=== PATIENT | female | born 1960 | race Caucasian/White ===

== ENCOUNTER → 2017-06-30 | Outpatient (CLI) | payer BC | END | disposition home or self-care (01) | LOC: GMAH 12:12 | PROVIDERS: ATTEND Family Medicine | DX: N30.00 Acute cystitis without hematuria (principal) ==

== ENCOUNTER → 2017-08-02 | Outpatient (CLI) | payer BC ==
--- NOTE | 2017-08-02 16:58 | CT ---
PROCEDURE: Abdoment/Pelvis w/o Contrast HISTORY: Abdominal pain. Evaluation for kidney stones Indication: Same as above Comparison: None Technique: CT of the abdomen and pelvis was done without intravenous contrast. Images were obtained from the lung base to the level of the pubic symphysis in axial plane, followed by orthogonal sagittal and coronal reconstruction. Oral contrast was not given for the study. This exam was performed according to our departmental dose-optimization program, which includes automated exposure control, adjustment of the mA and/or KV according to the patient's size and/or use of iterative reconstruction technique. FINDINGS: Images through the lung bases do not show any focal infiltrates or pleural effusions. The liver, gallbladder, pancreas, spleen and the bilateral adrenal glands appear unremarkable, given the limitation of lack of intravenous contrast. The bilateral kidneys do not show any evidence of hydronephrosis or nephrolithiasis. The bilateral ureters and the bilateral periureteral soft tissues and fat planes are unremarkable. The urinary bladder is unremarkable, without any evidence of wall thickening, calculi or filling defects. The small bowel appears unremarkable, without any evidence of small bowel obstruction or bowel wall thickening. There is no CT evidence of pericecal inflammatory change or ileocecal mesenteric adenitis. The ileocecal junction appears unremarkable. The appendix is not visualized There is no CT evidence of acute colonic diverticulitis or colitis or large bowel obstruction. There is no pathological lymphadenopathy in the retroperitoneum or in the pelvic region. There is no evidence of free fluid or free air in the abdomen or the pelvic region. There is no clinically significant abdominal aortic aneurysm. There is no clinically significant inguinal or ventral hernia. Uterus appears to be surgically absent The visualized lumbar spine is unremarkable. The paravertebral soft tissues are unremarkable. The remainder of the pelvic structures are unremarkable. IMPRESSION: There are no acute findings on the current study. There is no CT evidence of urinary tract calculi or urinary tract obstruction Electronically signed by: Humble Mcneal MD 08/02/2017 4:57 PM [employer] Workstation: [employer]
== END | disposition home or self-care (01) ==
LOC: CT 08:12
PROVIDERS: ATTEND Family Medicine
DX: N20.0 Calculus of kidney (principal); R10.84 Generalized abdominal pain; R31.21 Asymptomatic microscopic hematuria

== ENCOUNTER 2018-04-08 19:56 | Emergency (ER) | payer BC ==
--- NOTE | 2018-04-08 20:44 | ED.PDOC ---
History of Present Illness - General Chief Complaint: Neuro Symptoms/Deficits Stated Complaint: dizziness Time Seen by Provider: 04/08/18 20:30 Source: patient Exam Limitations: no limitations - History of Present Illness Initial Comments: Annette Barnes 57 y/o female stated that after cleansing her bathroom at about 11 am today had been feeling dizzy felt like she was spinning around which had been constant since it started .No blurry vision,no dysarthria,no muscle weakness.[place] nauseated but did not throw up. Timing/Duration: 4-6 hours Severity: moderate Improving Factors: nothing Worsening Factors: movement Associated Symptoms: denies symptoms Allergies/Adverse Reactions: Allergies NO KNOWN ALLERGY Allergy (Unverified 12/22/13 20:51) Review of Systems - Review of Systems Constitutional: States: no symptoms reported EENTM: States: no symptoms reported Respiratory: States: no symptoms reported Cardiology: States: no symptoms reported Gastrointestinal/Abdominal: States: no symptoms reported Genitourinary: States: no symptoms reported Musculoskeletal: States: no symptoms reported Skin: States: no symptoms reported Neurological: States: see HPI, other - dizziness All other Systems: Reviewed and Negative, No Change from Baseline Past Medical History (General) - Patient Medical History 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 Non Contributory this Encounter: Non Contributory for this Encounter Physical Exam - Physical Exam General Appearance: Alert, Comfortable, No apparent distress Eye Exam: bilateral normal Ears, Nose, Throat: hearing grossly normal, normal ENT inspection Neck: non-tender, full range of motion, supple Respiratory: chest non-tender, lungs clear, normal breath sounds, no respiratory distress Cardiovascular/Chest: normal peripheral pulses, regular rate, rhythm, no murmur Peripheral Pulses: radial,right: 2+, radial,left: 2+ Gastrointestinal/Abdominal: normal bowel sounds, non tender, soft Back Exam: normal inspection, no CVA tenderness, no vertebral tenderness Extremity: non-tender, normal inspection, no pedal edema, no calf tenderness Neurologic: no motor/sensory deficits, alert, normal mood/affect, oriented x 3, other - negative [place] Skin Exam: normal color, warm/dry Lymphatic: no adenopathy Progress - Progress Progress: 04/08/18 20:47 Vital Signs - 8 hr 04/08/18 20:05 Temperature 97.0 F L Pulse Rate [ 58 L Right] Respiratory 16 Rate Blood Pressure 146/82 [Left Arm] O2 Sat by Pulse 97 Oximetry BP-sittin/82;standin/90 04/08/18 22:16 She stated no longer feeling dizzy after given decadron,phenergan,and alprazolam 04/08/18 22:22 - Results/Orders Results/Orders: Vital Signs - 8 hr 04/08/18 04/08/18 04/08/18 20:05 21:00 22:06 Temperature 97.0 F L Pulse Rate [ 58 L 67 62 Right] Respiratory 16 16 16 Rate Blood Pressure 146/82 146/83 127/77 [Left Arm] O2 Sat by Pulse 97 98 Oximetry 04/08/18 21:00 EKG STAT Laboratory Results - last 24 hr 04/08/18 04/08/18 20:49 21:16 WBC 7.9 RBC 4.52 Hgb 13.3 Hct 39.1 MCV 86.4 MCH 29.4 MCHC 34.1 RDW 13.2 Plt Count 319 MPV 7.8 Absolute Neuts (auto) 5.20 Absolute Lymphs (auto) 1.80 Absolute Monos (auto) 0.60 Absolute Eos (auto) 0.10 Absolute Basos (auto) 0.10 Neutrophils % 66.2 Lymphocytes % 23.5 Monocytes % 7.5 Eosinophils % 1.8 Basophils % 1.0 PT 9.9 INR 0.99 PTT (SP) 26.8 Sodium 140 Potassium 3.8 Chloride 108 Carbon Dioxide 26 Anion Gap 9.8 L BUN 9 Creatinine 0.60 BUN/Creatinine Ratio 15.0 Random Glucose 113 H Serum Osmolality 280.8 Calcium 9.3 Magnesium 2.2 Total Bilirubin 0.6 Direct Bilirubin 0.3 H Indirect Bilirubin 0.3 AST 33 ALT 16 Alkaline Phosphatase 81 Creatine Kinase 139 CK-MB (CK-2) 2.2 CK-MB (CK-2) % Not Reportable Troponin I < 0.02 Serum Total Protein 7.2 Albumin 3.9 Urine Color Yellow Urine Appearance Sl cloudy Urine pH 7.5 Ur Specific [place] 1.020 Urine Protein Negative Urine Glucose (UA) Negative Urine Ketones Negative Urine Blood Trace-lysed H Urine Nitrite Negative Urine Bilirubin Negative Urine Urobilinogen 0.2 Ur Leukocyte Esterase Negative Urine RBC 5-10 H Urine WBC 0-1 Ur Epithelial Cells 0-1 Amorphous Sediment 2+ Urine Bacteria 0 Urine Mucus Small - EKG/XRAY/CT EKG: Sinus Comments: HR-61;narrow Q-waves lead 111 only Departure - Departure Clinical Impression: Dizziness of unknown cause Hematuria Qualifiers: Hematuria type: asymptomatic microscopic Qualified Code(s): R31.21 - Asymptomatic microscopic hematuria Time of Disposition: 22:17 Disposition: Discharge to Home or Self Care Condition: Fair Departure Forms: ED Discharge - Pt. Copy, Patient Portal Self Enrollment Instructions: Vertigo (a Type of Dizziness), Dizziness, Nonvertigo, (DC) Referrals: Crescencio Farias MD [Primary Care Provider] - 1-2 Weeks Additional Instructions: Follow up with primary Md in am 09 April 2018;Return to ER as needed;May take 0ver the counter DRAMAMINE as directed on package inser for dizziness
[2018-04-08] MEDS ORDERED: PROMETHAZINE HCL INJ 25 MG/ML VIAL IM ONE (20:49)
[2018-04-08] MEDS ORDERED: ALPRAZolam 0.25 MG TAB PO ONE (20:49)
[2018-04-08] MEDS ORDERED: DEXAMETHASONE INJ 4 MG/ML VIAL IV ONE (20:49)
[2018-04-09 17:47] VITALS: BP 127/77; TEMP 97; O2SAT 98
== END 2018-04-08 22:30 | disposition home or self-care (01) ==
LOC: ER 19:56
DX: R42 Dizziness and giddiness (principal); R31.21 Asymptomatic microscopic hematuria
CPT/HCPCS: 36415; 80048; 80076; 81001; 82550; 82553; 84484; 85025; 85610; 85730; 93005; J1100; J2550

== ENCOUNTER 2019-08-24 05:00 | Emergency (ER) | payer BC ==
[2019-08-24] MEDS ORDERED: IBUPROFEN 200 MG TAB PO ONE (05:11)
--- NOTE | 2019-08-24 05:50 | ED.PDOC ---
History of Present Illness - General Chief Complaint: General Stated Complaint: cough, headache Time Seen by Provider: 08/24/19 05:06 Source: patient Exam Limitations: no limitations - History of Present Illness Initial Comments: the patient is a 59-year-old female presenting to the emergency room secondary to cough congestion and runny nose for the last 3 days waking up with burning in her upper airways this morning. No definite fever. Cough is minimally productive. Mild headache. No syncope. No chest pain otherwise. Timing/Duration: other - 3 days Severity: moderate Improving Factors: nothing Worsening Factors: nothing Associated Symptoms: cough, headaches, malaise Allergies/Adverse Reactions: Allergies NO KNOWN ALLERGY Allergy (Unverified 12/22/13 20:51) Review of Systems - Review of Systems Constitutional: States: malaise EENTM: States: nose congestion, throat pain Respiratory: States: cough Cardiology: States: no symptoms reported Gastrointestinal/Abdominal: States: no symptoms reported Genitourinary: States: no symptoms reported Musculoskeletal: States: no symptoms reported Skin: States: no symptoms reported Neurological: States: no symptoms reported Endocrine: States: no symptoms reported All other Systems: No Change from Baseline Past Medical History (General) - Patient Medical History 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 Physical Exam - Physical Exam General Appearance: Alert, Comfortable, No apparent distress Eye Exam: bilateral normal Ears, Nose, Throat: nasal congestion, pharyngeal erythema - mild. She does have significant hoarseness. Neck: full range of motion, supple Respiratory: lungs clear, normal breath sounds, no respiratory distress, no accessory muscle use Cardiovascular/Chest: normal peripheral pulses, regular rate, rhythm, no edema Peripheral Pulses: radial,right: 2+, radial,left: 2+, dorsalis pedis,right: 2+, dorsalis pedis,left: 2+ Gastrointestinal/Abdominal: non tender, soft Rectal Exam: deferred Back Exam: no CVA tenderness, no vertebral tenderness Extremity: normal range of motion, non-tender, normal inspection, no pedal edema, normal capillary refill Neurologic: frame stripper II-XII nml as tested, alert, normal mood/affect, oriented x 3 Skin Exam: normal color Comments: Vital Signs - 24 hr 08/24/19 08/24/19 05:20 05:28 Temperature 98.3 F Pulse Rate [L 67 Finger] Respiratory 18 18 Rate Blood Pressure 128/88 [Left Arm] O2 Sat by Pulse 98 Oximetry Progress - Progress Progress: 08/24/19 05:53 the patient is a 59-year-old female presenting to the emergency room with symptoms consistent with a viral upper respiratory tract infection. Supportive care is recommended including increased fluid intake, Motrin use and [id number] Zyrtec if secretions become more copious. The patient has tested negative for flu and strep here. Lung [place] are clear on exam. Symptoms will likely last another 3-5 days. she should consider herself contagious. ER warnings were given. Keep routine follow-up with primary care doctor. sreedhar sams [phone] - Results/Orders Results/Orders: rapid flu and rapid strep were negative. Departure - Departure Clinical Impression: Upper respiratory infection Qualifiers: URI type: unspecified viral URI Qualified Code(s): J06.9 - Acute upper respiratory infection, unspecified Disposition: Discharge to Home or Self Care Condition: Fair Departure Forms: ED Discharge - Pt. Copy, Patient Portal Self Enrollment Instructions: Viral Upper Respiratory Infection, Adult (DC) Diet: regular diet Activity: increase activity as tolerated Additional Instructions: the patient is a 59-year-old female presenting to the emergency room with symptoms consistent with a viral upper respiratory tract infection. Supportive care is recommended including increased fluid intake, Motrin use and [id number] Zyrtec if secretions become more copious. The patient has tested negative for flu and strep here. Lung [place] are clear on exam. Symptoms will likely last another 3-5 days. she should consider herself contagious. ER warnings were given. Keep routine follow-up with primary care doctor.
[2019-08-24 05:59] VITALS: BP 120/81; TEMP 97.9; O2SAT 97
== END 2019-08-24 05:59 | disposition home or self-care (01) ==
LOC: ER 05:00
DX: J06.9 Acute upper respiratory infection, unspecified (principal)